=== PATIENT | female | born 1990 | race Two or more races ===

== ENCOUNTER → 2017-02-20 | Outpatient (REF) | payer OTHER ==
[~2017-02-20] MED LIST: ADVI200C5 PO; TYLE325T5 PO
== END ==
LOC: M SFHCLERA 13:50
PROVIDERS: ATTEND Nurse Practitioner Family
DX: R30.0 Dysuria (principal)
CPT/HCPCS: 87086; 87491; 87591; 96372; G0463; J0696

== ENCOUNTER 2017-07-02 11:37 | Emergency (ER) | payer OTHER ==
[~2017-07-02] VITALS: Ht 167.6 cm; Wt 173.0 kg
[2017-07-02 12:49] LABS: CONTROL LINE UCG INT CTR LINE PRESENT
[2017-07-02] MEDS ORDERED: CIPR-249 PO (13:23)
[2017-07-02] MEDS ORDERED: DIFL150T PO (13:23)
[2017-07-02] MEDS ORDERED: PYRI1TAB5 PO (13:23)
[2017-07-02 13:39] VITALS: BP 118/74
== END 2017-07-02 13:39 | disposition home or self-care (01) ==
LOC: M ED 11:37
DX: N39.0 Urinary tract infection, site not specified (principal); F17.210 Nicotine dependence, cigarettes, uncomplicated

== ENCOUNTER 2017-08-27 13:22 | Emergency (ER) | payer OTHER ==
[2017-08-27 14:21] LABS: KETONE, URINE AUTO RFX NEGATIVE (NEGATIVE); LEUKOCYTE ESTERASE UR AUTO RFX NEGATIVE (NEGATIVE); MUCUS, URINE RFX SMALL (NEGATIVE); NITRITE, URINE AUTO RFX NEGATIVE (NEGATIVE); RBC, URINE AUTO RFX 2 /HPF (0-3); SQUAM EPITHELIAL CELL UR AURFX 3 /HPF (0-6); WBC, URINE AUTO RFX 1 /HPF (0-3)
== END 2017-08-27 14:54 | disposition home or self-care (01) ==
LOC: M ED 13:22
DX: K64.9 Unspecified hemorrhoids (principal); K59.00 Constipation, unspecified; J32.9 Chronic sinusitis, unspecified; R11.2 Nausea with vomiting, unspecified; R30.0 Dysuria; F17.210 Nicotine dependence, cigarettes, uncomplicated
CPT/HCPCS: 81001

== ENCOUNTER 2017-09-19 02:35 | Emergency (ER) | payer OTHER ==
[2017-09-19] MEDS: KETOROLAC 60 MG/2 ML VIAL (J1885) IM ×2 (03:03)
== END 2017-09-19 03:30 | disposition home or self-care (01) ==
LOC: M ED 02:35
DX: S46.211A Strain of muscle, fascia and tendon of other parts of biceps, right arm, initial encounter (principal); W19.XXXA Unspecified fall, initial encounter; Y92.89 Other specified places as the place of occurrence of the external cause; F17.200 Nicotine dependence, unspecified, uncomplicated
CPT/HCPCS: J1885

== ENCOUNTER 2018-02-16 09:18 | Emergency (ER) | payer OTHER ==
[2018-02-16 10:16] LABS: KETONE, URINE AUTO RFX TRACE mg/dL (NEGATIVE); MUCUS, URINE RFX SMALL (NEGATIVE); NITRITE, URINE AUTO RFX NEGATIVE (NEGATIVE); RBC, URINE AUTO RFX 4 /HPF (0-3); SPECIFIC GRAVITY UR AUTO RFX 1.025 (1.002-1.035); SQUAM EPITHELIAL CELL UR AURFX 14 /HPF (0-6); WBC, URINE AUTO RFX 6 /HPF (0-3)
[2018-02-16 10:50] LABS: LEUKOCYTE ESTERASE UR AUTO RFX 3+ (NEGATIVE)
== END 2018-02-16 11:17 | disposition home or self-care (01) ==
LOC: M ED 09:18
DX: O23.12 Infections of bladder in pregnancy, second trimester (principal); O99.332 Smoking (tobacco) complicating pregnancy, second trimester; F17.210 Nicotine dependence, cigarettes, uncomplicated; Z3A.19 19 weeks gestation of pregnancy
CPT/HCPCS: 81001